=== PATIENT | male | born 1940 | race Caucasian/White ===

== ENCOUNTER 2020-10-06 02:08 | Emergency (ER) | payer OTHER ==
[~2020-10-06] VITALS: Ht 177.8 cm; Wt 72.2 kg
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
[2020-10-06] MEDS ORDERED: CEPH-264 PO (04:02)
[2020-10-06 04:25] VITALS: BP 207/97
== END 2020-10-06 04:30 | disposition home or self-care (01) ==
LOC: ER 02:08
DX: L03.116 Cellulitis of left lower limb (principal); M79.662 Pain in left lower leg; R22.42 Localized swelling, mass and lump, left lower limb; I10 Essential (primary) hypertension
CPT/HCPCS: 73590; 73610; 73630; 93971; 99284